=== PATIENT | male | born 1990 | race African-American/Black ===

== ENCOUNTER 2017-05-07 18:25 | Emergency (ER) | payer OTHER ==
[2017-05-07 18:35] VITALS: BP 115/72
[2017-05-07] MEDS ORDERED: IBUPROFEN 600 MG TABLET PO ONE (19:16)
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
== END 2017-05-07 19:25 | disposition home or self-care (01) ==
LOC: ER 18:25
DX: S40.019A Contusion of unspecified shoulder, initial encounter (principal); S40.029A Contusion of unspecified upper arm, initial encounter; M79.1 Myalgia; M79.602 Pain in left arm; V44.6XXA Car passenger injured in collision with heavy transport vehicle or bus in traffic accident, initial encounter
CPT/HCPCS: 99283